=== PATIENT | male | born 1975 | race Caucasian/White ===

== ENCOUNTER 2020-03-12 20:19 | Emergency (ER) | payer OTHER, SELFPAY ==
--- NOTE | 2020-03-12 20:23 | ED.DENTAL ---
HPI - Dental/Oral General Chief complaint: Dental/Oral Stated complaint: tooth pain Time Seen by Provider: 03/12/20 20:24 Source: patient and RN notes reviewed Mode of arrival: ambulatory Limitations: no limitations History of Present Illness HPI Narrative: patient states he has had a broken tooth for about 2 years. Never really bothered him and till the last week or so. Says it hurts worse at night. Hurts when he palpates his left lower jaw. He denies any fever chills. He also states that he has been noncompliant with his high blood pressure medicines. He states that the initial dose he was given seem to make him lightheaded. So he has not been taking it. Complaint: tooth pain Onset (ago): week(s) (1) Duration: intermittent Severity: moderate Relieving factors: nothing Exacerbating factors: chewing Context: history of dental caries Treatment prior to arrival: none Related Data Allergies Allergy/AdvReac Type Severity Reaction Status Date / Time No Known Allergies Allergy Verified 07/13/19 09:10 Review of Systems Review of Systems: All systems reviewed & are unremarkable except as noted in HPI and below Constitutional: Constitutional: Denies chills and Denies fever(s) PMFSH Past Medical History Medical History (Updated 03/12/20 @ 20:46 by Pablo Copeland MD) ROBB (generalized anxiety disorder) Hypertension Obesity YURIY (obstructive sleep apnea) Surgical History Surgical History (Updated 03/12/20 @ 20:27 by Pablo Copeland MD) History of carpal tunnel release Family History Family History Father Heart disease Social History Social History (Updated 03/12/20 @ 20:31 by Pablo Copeland MD) Smoking status: Never smoker Alcohol intake: never Substance use: never Exam Const: General: healthy appearing and no acute distress Nutritional Appearance: well nourished and obese morbidly obese Orientation/consciousness: patient oriented x3 HENMT: Head: normal to inspection Ears: external ears normal General nose exam: Normal external nose present Face and sinus: normal facial exam Mouth: Yes lip normal and Yes moist mucous membranes Teeth and gingiva: abnormal tooth and associated gingiva lower left second molar tender, avulsed and with associated gingival edema; without associated gingival fluctuance Eyes: Conjunctivae: conjunctivae normal Pupils: Equal, round and reactive pupils present EOM: EOMs intact bilaterally Neck: Neck: normal visual inspection and no lymphadenopathy Resp: Effort & Inspection: normal respiratory effort Auscultation: clear to auscultation bilaterally Cardio: Rate: regular rate Rhythm: regular rhythm GI: Auscultation: normal bowel sounds Back/Spine/Pelvis: Cervical Spine: cervical ROM normal Thoracic/Lumbar Spine: thoraco-lumbar ROM normal Neuro: General: patient oriented x3, moves all extremities and no focal motor deficits Speech: normal speech Gait exam (Neuro): Normal gait present Extrem: General: normal to inspection Psych: Appearance: grossly normal and well kempt Mental Status: mental status grossly normal Affect: normal affect Attitude: cooperative Thought content: Yes Normal thought content present Discharge Plan Discharge Clinical Impression: Toothache, Hypertension, Fracture of tooth Patient Disposition: Home, Self-Care Condition: Stable Instructions: Antibiotic Form, Toothache (ED) Additional Instructions: Follow-up with primary care physician in the next 3-5 days to address your high blood pressure. See dentist as soon as possible to extract tooth. Prescriptions: New nabumetone 750 mg tablet 750 mg PO BID Qty: 20 RF: 0 amoxicillin 500 mg tablet 500 mg PO TID Qty: 30 RF: 0 Follow-up/Referrals: Leslie Jones NP [Primary Care Provider] - Stand Alone Forms: Work/School Release IP Time of Disposition: 20:45
[2020-03-12 20:31] VITALS: BP 181/115; PULSE 78; RESP 18; TEMP 36.9; O2SAT 98
[2020-03-12] MEDS: cloNIDine HCL 0.1 MG TABLET 0.2 MG PO (20:43)
[2020-03-12 21:00] VITALS: BP 182/112; PULSE 77; RESP 18; O2SAT 97
[2020-03-12 21:15] VITALS: BP 181/113; PULSE 80; RESP 16; O2SAT 96
[2020-03-12] MEDS: hydrALAZINE HCL 25 MG TABLET PO (21:21)
[2020-03-12 21:40] VITALS: BP 155/104; PULSE 81; RESP 16; O2SAT 97
== END 2020-03-12 21:45 | disposition home or self-care (01) ==
PROVIDERS: Emergency Provider Emergency Medicine; PCP Nurse Practitioner Family
DX: K08.89 Other specified disorders of teeth and supporting structures (principal); I10 Essential (primary) hypertension; S02.5XXA Fracture of tooth (traumatic), initial encounter for closed fracture
CPT/HCPCS: 99283; A9270

== ENCOUNTER 2020-06-04 09:45 | Outpatient (CLI) | payer OTHER, SELFPAY ==
[2020-06-05 12:24] LABS: SARS-CoV-2 RNA PCR Negative
== END 2020-06-04 09:46 | disposition home or self-care (01) ==
LOC: CHSLAB 09:48
PROVIDERS: PCP Nurse Practitioner Family; Visit Provider Nurse Practitioner Family
DX: R50.9 Fever, unspecified (principal); Z20.828 Contact with and (suspected) exposure to other viral communicable diseases
CPT/HCPCS: 87635; C9803; U0003

== ENCOUNTER 2020-12-18 09:12 | Outpatient (CLI) | payer OTHER, SELFPAY ==
--- NOTE | ~2020-12-18 | XR_ITS ---
EXAMINATION: XR wrist LT 2V INDICATION: Left wrist pain TECHNIQUE: Two views of left wrist are obtained. COMPARISON: None available FINDINGS: Bone alignment is normal. There is no fracture. The soft tissues are unremarkable. IMPRESSION: 1. Unremarkable two view left wrist radiographs. Reviewed, dictated and finalized at location B.
== END 2020-12-18 09:13 | disposition home or self-care (01) ==
LOC: CHSIMG 09:16
PROVIDERS: PCP Nurse Practitioner Family; Visit Provider Nurse Practitioner Family
DX: M25.532 Pain in left wrist (principal)
CPT/HCPCS: 73100

== ENCOUNTER 2021-06-09 10:51 | Outpatient (CLI) | payer OTHER, SELFPAY ==
[2021-06-09 11:41] LABS: SARS-CoV-2 RNA PCR Negative (Negative)
== END 2021-06-09 10:52 | disposition home or self-care (01) ==
LOC: CHSLAB 10:55
PROVIDERS: PCP Nurse Practitioner Family; Visit Provider Nurse Practitioner Family
DX: Z20.822 Contact with and (suspected) exposure to COVID-19 (principal)
CPT/HCPCS: C9803; U0003; U0005

== ENCOUNTER 2021-09-23 00:30 | Emergency (ER) | payer OTHER, SELFPAY ==
[2021-09-23 08:32] LABS: Influenza Control Valid (Valid)
[2021-09-23 08:33] LABS: SARS-CoV-2 Ag Negative (Negative)
== END 2021-09-23 01:49 | disposition home or self-care (01) ==
PROVIDERS: Emergency Provider Internal Medicine Critical Care Medicine; PCP Nurse Practitioner Family
DX: J02.0 Streptococcal pharyngitis (principal); J30.9 Allergic rhinitis, unspecified; H66.93 Otitis media, unspecified, bilateral; Z20.822 Contact with and (suspected) exposure to COVID-19
CPT/HCPCS: 87426; 87804; 87880; 99283; C9803

== ENCOUNTER 2021-11-13 08:58 | Outpatient (CLI) | payer OTHER, SELFPAY ==
[2021-11-13 10:16] LABS: SARS-CoV-2 RNA PCR Positive (Negative)
== END 2021-11-13 08:59 | disposition home or self-care (01) ==
LOC: CHSLAB 09:00
PROVIDERS: PCP Nurse Practitioner Family; Visit Provider Family Medicine
DX: U07.1 COVID-19 (principal)
CPT/HCPCS: C9803; U0003; U0005

== ENCOUNTER 2021-12-10 16:14 | Outpatient (RCR) | payer OTHER, SELFPAY ==
--- NOTE | 2021-12-11 08:23 | PTOPEVAL ---
Thank you for referring Gene Fournier to [facility].? The patient is scheduled to be seen for therapy? ____x/week for ___ weeks. Please review, sign, date and return this plan of care SITA. I agree with and certify that the following plan of care is medically necessary. 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 Respiratory History Hx Sleep Apnea Yes Gastrointestinal History Hx Gastrointestinal Disorders No Significant History Genitourinary History Hx Genitourinary Disorders No Significant History Musculoskeletal History Hx Back Pain Yes Hematological History Hx Hematological Disorders No Significant History Endocrine History Hx Endocrine Disorders No Significant History HEENT History Hx HEENT Disorders No Significant History Integumentary History Hx Skin Disorders No Significant History Reproductive History Hx Reproductive Disorders No Significant History Psychosocial History Hx Psychiatric Disorders No Significant History Pain History History of Any Previous or Ongoing No Significant History Instance of Pain Anesthesia History Hx Anesthesia Reactions No Significant History Other History Hx Other Surgeries Yes Evaluation Information Problem Diagnosis L Lateral Epicondylitis Onset 12/02/21 Additional Evaluation Detail Quick Dash = 66% Functionally Declined Subjective Information Pt reports that the back of Query Text:As Reported By Patient/ his L forearm will hurt when Family he straightens his L elbow. Picking up objects also increases his pain. He does recall an incident that caused his pain to increase, but reports that the pain has increased over the course of a month. Pt is also left handed . Prior Level of Function Comments Additional Prior Level of Function Pt works with a Comments
--- NOTE | 2022-01-22 17:08 | PTOPEVAL ---
Thank you for referring Gene Fournier to [facility].? The patient is scheduled to be seen for therapy? ____x/week for ___ weeks. Please review, sign, date and return this plan of care SITA. I agree with and certify that the following plan of care is medically necessary. 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[employer] Respiratory History Hx Sleep Apnea Yes Gastrointestinal History Hx Gastrointestinal Disorders No Significant History Genitourinary History Hx Genitourinary Disorders No Significant History Musculoskeletal History Hx Back Pain Yes Hematological History Hx Hematological Disorders No Significant History Endocrine History Hx Endocrine Disorders No Significant History HEENT History Hx HEENT Disorders No Significant History Integumentary History Hx Skin Disorders No Significant History Reproductive History Hx Reproductive Disorders No Significant History Psychosocial History Hx Psychiatric Disorders No Significant History Pain History History of Any Previous or Ongoing No Significant History Instance of Pain Anesthesia History Hx Anesthesia Reactions No Significant History Other History Hx Other Surgeries Yes Evaluation Information Problem Diagnosis L Lateral Epicondylitis Onset 12/02/21 Additional Evaluation Detail quick dash = 9% functionally declined Subjective Information patient reports he feels good Query Text:As Reported By Patient/ this date. he reports his Family arm finally feels like it is getting better and the pain and tightness has released. he reports he has not had any severe pain in the last week. Pain Assessment Timing of Pain Assessment Timing of Pain Assessment Assessment Pain Scale Pain Scale Used Numeric (1 - 10) Self Report Pain Assessment Left Elbow(s) Reported Pain Level 2 Greatest Pain Intensity 2 Pain Score Pain Score 2: Se
== END 2022-01-22 17:29 | disposition home or self-care (01) ==
LOC: CHSPT 16:14
PROVIDERS: PCP Nurse Practitioner Family; Visit Provider Nurse Practitioner Family
DX: M79.632 Pain in left forearm (principal); M25.522 Pain in left elbow
CPT/HCPCS: 97014; 97035; 97110; 97140; 97161; G0283

== ENCOUNTER 2023-02-17 08:51 | Outpatient (CLI) | payer OTHER, SELFPAY ==
--- NOTE | ~2023-02-17 | US_ITS ---
Renal-Bladder ultrasound Clinical History: Disorder of kidney and ureter, unspecified. Right flank pain. Technique: Real-time sonographic imaging of the kidneys and urinary bladder was performed. Findings: The right kidney measures 13.0 cm in length and the left kidney measures 12.4 cm. There is no hydronephrosis or renal calculus identified. Renal cortical echogenicity is within normal limits. Possible exophytic cyst at the left lower pole measuring 2.7 m in diameter. The urinary bladder is moderately distended at the time of this exam. No intraluminal echoes are iden tified. No abnormal wall thickening is seen. Impression: Possible 2.8 cm exophytic cyst versus other mass at the left lower renal pole. Evaluation is suboptim al due to patient body habitus. Consider cross-sectional imaging for further evaluation. Reviewed, dictated and finalized at [facility]. Impression: Possible 2.8 cm exophytic cyst versus other mass at the left lower renal pole. Evaluation is suboptimal due to patient body habitus. Consider cross-sectional imaging for further evaluation.
== END 2023-02-17 08:52 | disposition home or self-care (01) ==
LOC: CHSIMG 08:53
PROVIDERS: PCP Nurse Practitioner Family; Visit Provider Nurse Practitioner Family
DX: N28.9 Disorder of kidney and ureter, unspecified (principal)
CPT/HCPCS: 76775

== ENCOUNTER 2023-02-27 08:46 | Outpatient (CLI) | payer OTHER, SELFPAY | END 2023-02-27 08:47 | disposition home or self-care (01) | LOC: CHSIMG 08:47 | PROVIDERS: PCP Nurse Practitioner Family; Visit Provider Nurse Practitioner Family | DX: N28.9 Disorder of kidney and ureter, unspecified (principal) | CPT/HCPCS: 99199 ==

== ENCOUNTER 2023-03-31 13:14 | Outpatient (CLI) | payer OTHER, SELFPAY ==
[2023-03-31 13:39] LABS: Appearance Urine Clear (Clear); Bilirubin Urine Negative (Negative); Color Urine Light Yellow (Yellow); Glucose Urine UA Negative (Negative); Ketones Urine Negative (Negative); Leukocyte Esterase Ur Negative LEU/UL (Negative); Nitrate Urine Negative (Negative); Protein Urine Negative (Negative); Specific Grav Ur 1.025 (1.010-1.020); Urobilinogen Urine 0.2 mg/dL (0.2-1.0)
[2023-03-31 13:45] LABS: Add Urine Microscopic? YES; Bacteria Urine None seen /hpf; Blood Urine Trace-lysed (Negative); RBC Urine None seen /hpf (0-2); WBC Urine None seen /hpf (0-3)
== END 2023-03-31 13:15 | disposition home or self-care (01) ==
LOC: CHSLAB 13:16
PROVIDERS: PCP Nurse Practitioner Family; Visit Provider Nurse Practitioner Family
DX: R39.9 Unspecified symptoms and signs involving the genitourinary system (principal)
CPT/HCPCS: 81001

== ENCOUNTER 2023-04-21 14:40 | Outpatient (CLI) | payer OTHER, SELFPAY ==
--- NOTE | ~2023-04-21 | XR_ITS ---
EXAM: XR thoracic spine 3V DATE: 04/21/2023 15:07 HISTORY: M54.9 - Dorsalgia, unspecified . COMPARISON: None available. FINDINGS: Vertebral body alignment intact. Incidental grade 1 anterolisthesis at C7-T1. Exaggerated thoracic kyphosis. Mild anterior wedge deformity at T8 and T9. Multilevel moderate disc space narrowi ng and marginal osteophytosis. No traumatic malalignment. Visualized lung parenchyma is clear. IMPRESSION: Mild anterior wedge compression deformities at T8 and T9 of uncertain age. Correlate with pain/tender ness. Multilevel moderate thoracic degenerative disc disease. Grade 1 anterolisthesis at C7-T1. Reviewed, dictated and finalized at location K. IMPRESSION: Mild anterior wedge compression deformities at T8 and T9 of uncertain age. Cristal elate with pain/tenderness. Multilevel moderate thoracic degenerative disc disease. Grade 1 anterolisthesis at C7-T1.
== END 2023-04-21 14:41 | disposition home or self-care (01) ==
PROVIDERS: PCP Nurse Practitioner Family; Visit Provider Nurse Practitioner Family
DX: M54.9 Dorsalgia, unspecified (principal); M48.54XA Collapsed vertebra, not elsewhere classified, thoracic region, initial encounter for fracture; M51.34 Other intervertebral disc degeneration, thoracic region; M43.14 Spondylolisthesis, thoracic region
CPT/HCPCS: 72072

== ENCOUNTER 2023-07-19 08:13 | Outpatient (CLI) | payer OTHER, SELFPAY ==
--- NOTE | ~2023-07-19 | NM_ITS ---
EXAMINATION: NM hepatobiliary wo pharm DATE: 07/19/2023 11:39 INDICATION: Right upper quadrant abdominal pain. COMPARISON: Ultrasound 07/19/2023 TECHNIQUE: 4.9 mCi Tc-99m mebrofenin (Choletec) was administered intravenously. Scintigraphic images of the abdomen were obtained for one hour. Then, the patient drank 8 oz Ensure, and imaging was cont inued for 60 minutes. FINDINGS: There is normal clearance of radiotracer from the blood pool. There is homogeneous tracer u ptake by the liver. Activity progresses to the bowel and gallbladder. Gallbladder ejection fraction (GBEF) was 27%. Note that with this technique, normal GBEF >= 33%. IMPRESSION: 1. Low gallbladder ejection fraction, consistent with gallbladder dysfunction and/or chronic cholecy stitis. Reviewed, dictated and finalized at location A. CASE MAKER IMPRESSION: 1. Low gallbladder ejection fraction, consistent with gallbladder dysfunction and/or chronic cholecystitis.
--- NOTE | ~2023-07-19 | US_ITS ---
Limited Abdominal Sonogram: Real-time sonographic imaging of the right upper quadrant was performed. Clinical History: Right upper quadrant pain Findings: The liver appears echogenic, with no evidence of mass lesion or bile duct dilatation. Main portal vein demonstrates normal direction of flow. The gallbladder is well distended, and appears no rmal with no evidence of gallstone or wall thickening. The common bile duct measures 5 mm. The visua lized pancreas, aorta, and IVC are unremarkable. Impression: No significant abnormality seen. Reviewed, dictated and finalized at location M. ED FRUIT PACKER Impression: No significant abnormality seen.
== END 2023-07-19 08:14 | disposition home or self-care (01) ==
PROVIDERS: PCP Nurse Practitioner Family; Visit Provider Nurse Practitioner
DX: R93.2 Abnormal findings on diagnostic imaging of liver and biliary tract (principal)
CPT/HCPCS: 76705; 78226; A9537

== ENCOUNTER 2023-08-23 11:31 | Emergency (ER) | payer OTHER, SELFPAY ==
[2023-08-23 11:51] VITALS: BP 152/82; PULSE 97; RESP 20; TEMP 37.5; O2SAT 100
--- NOTE | 2023-08-23 12:19 | ED.URI ---
HPI - URI/Sore Throat General Chief Complaint: Upper Respiratory Infection Stated Complaint: flu symptoms Time Seen by Provider: 08/23/23 12:09 Source: patient and RN notes reviewed Mode of arrival: ambulatory Limitations: no limitations History of Present Illness HPI Narrative: Patient presents today complaining of bilateral ear pain, cough, congestion, rhinorrhea, body aches since yesterday. Unsure if he has had a fever. Currently rates his pain 7/10 and has been taking DayQuil, NyQuil, and ibuprofen without much relief. Reports has recently been ill with pneumonia and influenza B. Related Data Home Medications Medication Instructions Recorded Confirmed losartan 25 mg tablet 25 mg PO DAILY 07/27/23 08/23/23 Allergies Allergy/AdvReac Type Severity Reaction Status Date / Time cortisone Allergy Other Uncoded 07/27/23 09:12 Review of Systems Review of Systems: CONSTITUTIONAL: Denies fever, chills, or sweats. Body aches EYES: Denies visual changes, redness, or discharge. ENT: Denies sore throat. + congestion, rhinorrhea, bilateral ear pain CARDIOVASCULAR: Denies chest pain, palpitations, or edema. RESPIRATORY: Denies dyspnea.+ cough GASTROINTESTINAL: Denies abdominal pain, nausea, vomiting, or diarrhea. GENITOURINARY: Denies dysuria or hematuria. SKIN: Denies rash, itching, or wounds. MUSCULOSKELETAL: Denies back pain, joint pain, or myalgia. NEUROLOGIC: Denies headache, numbness, tingling, or weakness. PSYCH: Denies depression or anxiety. [facility] Past Medical History Medical History Biliary dyskinesia Colicky RUQ abdominal pain ROBB (generalized anxiety disorder) Hypertension Obesity YURIY (obstructive sleep apnea) Screening for colon cancer Surgical History Surgical History History of carpal tunnel release History of hand surgery Family History Family History Father Heart disease Social History Social History Smoking status: Never smoker Alcohol intake: never Substance use: never Do You Feel Safe in your Home?: Yes Lack of Transportation: No Lack of Food: Never True Current Housing: I Have Housing Concerned About Future Housing: No Difficulty Paying Gas/Electric Bills: No Difficulty Paying for Meds: No Currently Unemployed: No Education: High School Diploma/GED Difficulty w/ Childcare or Family Care: No Gender identity (if verbalized by the patient): Male Comments At time of signature, I have reviewed and agree with nursing past medical, surgical, social and family history unless otherwise noted. Please see nursing chart for further information. There is no relevant family history pertinent to the presenting complaint Exam Narrative: GENERAL: Ill-appearing, well-nourished, and in no acute distress. HEAD: Normocephalic, atraumatic. EYES: EOMI. No redness or drainage. Conjunctivae normal. ENT: Mucous membranes pink and moist. Nares congested with rhinorrhea. TMs normal bilaterally. Throat normal. Uvula midline. NECK: Normal AROM. Supple. No lymphadenopathy. CHEST: No respiratory distress. Clear to auscultation. HEART: Regular rate and rhythm. No murmur appreciated. EXTREMITIES: Normal range of motion. No edema. SKIN: Warm, dry, no rash. Capillary refill normal. Normal skin turgor. NEURO: No focal deficits. Alert and oriented x3. Gait steady. PSYCH: Normal affect. No signs of depression or anxiety. Course Course Level of Care: Express Care Visit Vital Signs Vital signs: Vital Signs Temperature 99.5 F 08/23/23 11:51 Pulse Rate 97 08/23/23 11:51 Respiratory Rate 20 08/23/23 11:51 Blood Pressure 152/82 H 08/23/23 11:51 Pulse Oximetry 100 08/23/23 11:51 Oxygen Delivery Room Air
== END 2023-08-23 12:30 | disposition home or self-care (01) ==
PROVIDERS: Emergency Provider Nurse Practitioner
DX: J10.1 Influenza due to other identified influenza virus with other respiratory manifestations (principal); Z20.822 Contact with and (suspected) exposure to COVID-19; I10 Essential (primary) hypertension; E66.9 Obesity, unspecified; Z68.43 Body mass index [BMI] 50.0-59.9, adult
CPT/HCPCS: 87081; 87426; 87804; 87880; 99213; G0463

== ENCOUNTER 2023-09-02 13:26 | Outpatient (CLI) | payer OTHER, SELFPAY ==
--- NOTE | 2023-09-02 13:48 | ECG_ITS ---
Measurements Intervals [place] Rate: 74 P: 43 RI: 155 QRS: 40 QRSD: 93 T: 69 QT: 387 QTc: 431 Interpretive Statements SINUS RHYTHM BORDERLINE ST-T WAVE ABNORMALITY- DIFFUSE LEADS BORDERLINE ECG NO PREVIOUS ECG AVAILABLE FOR COMPARISON Electronically Signed On 09-02-2023 14:27:27 CDT by Vinny Stiles D.O.
[2023-09-02 14:19] LABS: Alanine Aminotransferase 31 U/L (6-50); Albumin Level 4.1 g/dL (3.5-5.1); Alkaline Phosphatase 96 U/L (38-126); Amylase 68 U/L (30-110); Aspartate Amino Transferase 29 U/L (17-59); Bilirubin,Total 0.4 mg/dL (0.2-1.3); Lipase 118 U/L (23-300)
== END 2023-09-02 13:27 | disposition home or self-care (01) ==
PROVIDERS: PCP Nurse Practitioner Family; Visit Provider Surgery
DX: Z01.818 Encounter for other preprocedural examination (principal); K81.9 Cholecystitis, unspecified
CPT/HCPCS: 36415; 80076; 82150; 83690; 86850; 86900; 86901; 93005

== ENCOUNTER 2023-09-07 00:15 | Day surgery (SDC) | payer OTHER, SELFPAY ==
[2023-08-30 14:35] VITALS: BMI 54.8
--- NOTE | 2023-08-30 14:36 | PC.NURSE ---
Report to the Outpatient Waiting Room, entrance under the green pavilion located off [facility], at time _1130_ on date _[id number]_. Planned Procedure Time: _130pm_. Time changes happen often and if your time is changed the preop area will call you the afternoon before. - You and your visitor will be asked to self-screen and do not enter if you have any COVID symptoms. - A mask is optional within the hospital at this time. Patients may have clear liquids (water, carbonated beverages, clear teas, apple juice) until 3 hours prior to surgery with a maximum of 20 ounces. - No food from midnight until time of surgery Take the following medications with a SIP of water the morning of surgery: ___None DO NOT STOP ANY OF YOUR OTHER PRESCRIPTION MEDICATIONS PRIOR TO SURGERY ?EXCEPT THE FOLLOWING Medications to discontinue per physician None Date to take last dose Please no make-up, nail greek, hairspray, perfume, deodorant, or body powder the day of surgery. No jewelry (including any body piercings) or valuables the day of surgery, leave them at home. Please take a shower or bath the night before, or the morning of, surgery with an antibacterial soap. Wear comfortable, loose fitting clothing. - Jewelry must be removed prior to entering the operating room. Rings and piercings that are not removed may be cut off. - The hospital will not accept responsibility for valuables. - Please leave all valuables, including medications, at home the day of surgery. If you are going home after surgery, a licensed pharmacy delivery driver must drive you home. - NO public transportation without another adult if you receive anesthesia. - We recommend that an adult stay with you for 24 hours following discharge. - We also recommend that you do not drive, make important decision, drink alcoholic beverages, or take any drugs that were not prescribed by your health care provider for at least 24 hours after your discharge time. Follow any additional instructions given to you from your surgeon. If you or anyone in your household have experienced Covid symptoms in the past week, please notify your surgeon or the nurse liaison at the phone number below for possible testing. Telephone instructions given to _Carroll___and asked if any additional questions and then verbalized understanding. Patient advised to call surgeon office or pre surgery nurse liaison [phone] if any additional questions.
[2023-09-07] VITALS (8 sets, daily range): BP systolic 150–178; BP diastolic 81–98; PULSE 67–94; RESP 16–20; TEMP 36.8–37.1; O2SAT 96–100
[2023-09-07] MEDS: ACETAMINOPHEN 500 MG TABLET 1000 MG PO (11:40)
[2023-09-07] MEDS: INDOCYANINE GREEN 25 MG VIAL WITH DILUENT 3.75 MG IV PUSH (12:09)
[2023-09-07] MEDS: KETOROLAC 15 MG/ML VIAL (*BKC) IV PUSH (12:11)
--- NOTE | 2023-09-07 13:05 | PM.IMHP ---
H&P: HPI History of Present Illness Date/Time: 09/07/23 13:05 Chief Complaint: RUQ pain Narrative: Gene is a 48 y/o male who presents with RUQ abdominal pain at the request of Karla Lacy APRN. He first had an episode of RUQ abdominal pain in January. He states the pain radiated to his back. He also had associated vomiting. He was seen in an ER at [facility] and was told he had a cyst on his kidney. He followed up with his PCP and proceeded with a HIDA scan on 07/19/23 which showed a GBEF of 27%. He also had an abdominal U/S which showed no abnormality. Since the initial abdominal pain, he has noticed intermittent right sided pain and discomfort after drinking soda. He also had discomfort recently after eating white chocolate. He admits to eating a lot of fast food due to his job. He has experienced some acid reflux and was started on Protonix. He tried it for about 1.5 weeks with no relief and has stopped taking it. Review of Systems Review of Systems: The remainder of the review of systems to include constitutional, HEENT, cardiovascular, respiratory, GI, , integumentary, musculoskeletal, endocrine, immunologic, hematologic, psychiatric, and neurologic are all negative except for which is mentioned above in the HPI. [facility] Past Medical History Medical History Biliary dyskinesia Colicky RUQ abdominal pain ROBB (generalized anxiety disorder) Hypertension Obesity YURIY (obstructive sleep apnea) Screening for colon cancer Surgical History Surgical History History of carpal tunnel release History of hand surgery Family History Family History Father Heart disease Social History Social History Smoking status: Never smoker Alcohol intake: never Substance use: never Do You Feel Safe in your Home?: Yes Lack of Transportation: No Lack of Food: Never True Current Housing: I Have Housing Concerned About Future Housing: No Difficulty Paying Gas/Electric Bills: No Difficulty Paying for Meds: No Currently Unemployed: No Education: High School Diploma/GED Difficulty w/ Childcare or Family Care: No Living arrangements: with family Gender identity (if verbalized by the patient): Male Spiritual care concerns: No Meds Home Medications and Allergies Home Medications Medication Instructions Recorded Confirmed Type omeprazole 20 mg capsule,delayed 20 mg PO BID #45 caps 07/27/23 08/30/23 Rx release Allergies Allergy/AdvReac Type Severity Reaction Status Date / Time cortisone Allergy Severe Other Uncoded 09/07/23 11:33 Vital Signs Vital Signs - 24 hr 09/07/23 12:42 Temperature 37.1 C Pulse Rate 72 Respiratory Rate 20 Blood Pressure 178/93 H Pulse Oximetry 98 Oxygen Delivery Room Air Exam Const: General: comfortable and no acute distress HENMT: Ears: TM's normal bilaterally Face/Nose/Sinus: Normal nares present Mouth: Yes moist mucous membranes Eyes: General: appearance normal, both eyes and all related structures Sclera: sclerae normal Pupils: Equal, round and reactive pupils present EOM: EOMs intact bilaterally Neck: Neck: supple and no JVD Resp: Effort & Inspection: normal respiratory effort Auscultation: clear to auscultation bilaterally Cardio: Rate: regular rate Rhythm: regular rhythm GI: Other: Inspection: normal to inspection and central obesity Palpation/Percussion: Yes no guarding and No Rebound tenderness present Other: Minimal RUQ & right lateral tenderness. Neuro: General: gait normal Speech: normal speech Motor exam (neuro): 5/5 motor strength present throughout Sensory Exam: normal sensation Extrem: General: normal to inspection Psych: Mental Status: mental status grossly normal Affect: normal affect Assessment
--- NOTE | 2023-09-07 13:10 | P.PNAN_ITS ---
Anes - Initial Pre Proc Eval Procedure: Operation Date: 09/07/23 13:30 Proposed Procedures p Robotic Assisted Laparoscopic Cholecystectomy, Possible Open - Carroll Diaz MD Date/Time: 09/07/23 13:10 Surgeon: Carroll Diaz MD Pre Op Diagnosis: RUQ pain, billiary dyskinesia Patient Data Age: 48 Gender: M Height: 1.73 m Weight: 161 kg Last Vital Signs Temp 37.1 C 09/07/23 12:42 Pulse 72 09/07/23 12:42 Resp 20 09/07/23 12:42 BP 178/93 H 09/07/23 12:42 Pulse Ox 98 09/07/23 12:42 O2 Del Method Room Air 09/07/23 12:42 Allergies Allergy/AdvReac Type Severity Reaction Status Date / Time cortisone Allergy Severe Other Uncoded 09/07/23 11:33 Home Medications Medication Instructions Recorded Confirmed Type omeprazole 20 mg capsule,delayed 20 mg PO BID #45 caps 07/27/23 08/30/23 Rx release Patient hx anesthesia problems: none Family hx anesthesia problems: none Results Review: All pre-operative results and documents have been reviewed as part of the pre- operative evaluation. [facility] Past Medical History Medical History Biliary dyskinesia Colicky RUQ abdominal pain ROBB (generalized anxiety disorder) Hypertension Obesity YURIY (obstructive sleep apnea) Screening for colon cancer Surgical History Surgical History History of carpal tunnel release History of hand surgery Family History Family History Father Heart disease Social History Social History Smoking status: Never smoker Alcohol intake: never Substance use: never Do You Feel Safe in your Home?: Yes Lack of Transportation: No Lack of Food: Never True Current Housing: I Have Housing Concerned About Future Housing: No Difficulty Paying Gas/Electric Bills: No Difficulty Paying for Meds: No Currently Unemployed: No Education: High School Diploma/GED Difficulty w/ Childcare or Family Care: No Living arrangements: with family Gender identity (if verbalized by the patient): Male Spiritual care concerns: No Anes - Eval Final PreProcedure Day of Procedure 09/07/23 13:10 Patient weight: super morbidly obese Heart: regular rate and rhythm Lungs: clear to auscultation Airway: Mallampati scale class III Neurological: alert and oriented Last oral intake: >/= 8 hours ASA classification: IV Emergent: no Anesthetic plan: proceed Anesthesia type and monitoring: general ETT and standard monitoring Results Review: All pre-operative results and documents have been reviewed as part of the pre- operative evaluation. Informed Consent: The patient's anesthetic plan and its attendant risks and benefits were discussed with the patient/family/POA. Questions were solicited and answers provided to the satisfaction of the patient/family/POA.
--- NOTE | 2023-09-07 13:10 | WPDHPUPDATE1 ---
History and Physical Update Update Date/Time: 09/07/23 13:10 History and Physical has been reviewed, including an updated exam of the patient. There are NO changes in the patient's condition. Risks, benefits, and alternatives have been discussed and questions answered. Patient agrees to proceed with procedure.
[2023-09-07] MEDS: ceFAZolin 3 GM/D5W 100 ML 100 ML IVPB (13:51)
[2023-09-07] MEDS: LIDO 1%/EPINEPHRINE 1:100,000 20 ML VIAL 30 ML INFILTRATE (14:37)
[2023-09-07] MEDS: BUPivacaine HCL 0.5% PF 30 ML VIAL INFILTRATE (14:37)
[2023-09-07] MEDS: LACTATED RINGERS 1,000 ML 30 ML IV CONT (16:36)
--- NOTE | 2023-09-07 16:44 | W.PM.PROC2 ---
Procedure Note - Detailed Date of Procedure 09/07/23 Pre-op Diagnosis RUQ pain, billiary dyskinesia Post-op Diagnosis Same Procedure Performed Robotic assisted laparoscopic cholecystectomy Surgeon Carroll Diaz MD Anesthesia General Indications Patient presents with frequent right upper quadrant epigastric abdominal pain associated with eating. Gallstones were not seen on ultrasound. He has biliary colic due to gallbladder dysfunction has ejection fraction was abnormal and he was having pain with the HIDA scan. He presents now for an elective robotic assisted laparoscopic cholecystectomy. Findings Gallbladder appeared to be relatively normal in size and thickness. No acute inflammation of the gallbladder. Description of Procedure After informed consent was obtained patient brought to the operating room was placed supine position and general endotracheal anesthesia was administered. The abdomen is then prepped and draped usual sterile fashion. Time-out was then performed correctly identifying the patient as well as procedure to be performed. Perioperative IV antibiotics were given. A 5mm Optiview port was then used into the abdomen the left upper quadrant. Abdomen is insufflated to adequate pneumoperitoneum of 15mmHg of CO2. I then placed 4 more additional 8mm robotic trocar ports across the abdomen for robotic access. The Grid20/20 robot was then brought to the patient's bedside in the robotic arms were attached the robotic ports. Robotic instruments were then advanced into the abdomen as was the camera under direct visualization. Gallbladder was held with the robotic grasper at the dome and elevated over the right half liver towards the right shoulder. Second grasper used all the gallbladder infundibulum. I then stripped the visceral peritoneum off of the infundibular gallbladder to identify the cystic duct. Cystic duct was then dissected out circumferentially. Cystic artery was identified and was dissected out circumferentially as well. Posterior wall the gallbladder at the infundibulum dissected free liver until good critical view was obtained. At this point 2 clips were placed proximally the cystic duct and 1 distally high on infundibular gallbladder. Cystic duct was then divided with robotic dexter. A similar fashion cystic artery clipped and divided as well. Gallbladder was then resected off the liver utilizing robotic cautery. There was spillage of some bile during the dissection. Once the gallbladder is free of the liver it was placed into an Endo-Catch bag and brought out through the left upper quadrant trocar port site which was dilated up to a 10mm trocar port. Gallbladder is passed off table sent to pathology for examination. Upon examination the liver bed there was bleeding from the medial portion liver bed. Multiple attempts to achieve hemostasis electrocautery and placement of clips were unsuccessful. Placement of Tisseel and Surgicel and pressure for 10minutes was not successful in obtaining hemostasis. At this point I then proceeded to place suture ligation with a 3-0 absorbable V lock suture. This obtained hemostasis in this area the liver bed. I then aspirated the right upper quadrant the abdomen the gallbladder fossa copious of copious sterile saline solution. The blood clot air was then aspirated. Hemostasis was good. I then removed all the trocar ports under visualization after the HESIODO robot was undocked from the patient's bedside and robotic instruments were removed. And scrub back into the procedure and proceeded to close the 10mm left upper quadrant trocar port site was utilizing 0 Vicryl suture in the fascia. The skin edges not the port sites were then approximated utilizing a running subcuticular 4 Monocryl suture. Incisions were then cleaned and then skin glue sterile dressings were applied. The patient tolerated the procedure well no complications. All sponges, needles, and instrument counts were correct at t
[2023-09-07] MEDS: fentaNYL CITRATE INJ (*CRX) 100 MCG/2 ML VIAL 25 MCG IV PUSH ×4 (17:03→17:13)
[2023-09-07] MEDS: oxyCODONE HCL (*CRX) 5 MG TAB IR PO (17:41)
== END 2023-09-07 18:45 | disposition home or self-care (01) ==
PROVIDERS: PCP Nurse Practitioner Family; Visit Provider Surgery
PROC: 0FT44ZZ Resection of Gallbladder, Percutaneous Endoscopic Approach (ICD-10-PCS; CPT 47562; principal; 2023-09-07 13:30)
DX: K81.1 Chronic cholecystitis (principal); G47.33 Obstructive sleep apnea (adult) (pediatric); E66.01 Morbid (severe) obesity due to excess calories; Z68.43 Body mass index [BMI] 50.0-59.9, adult
CPT/HCPCS: 47562; S2900; 36415; 80076; 82150; 83690; 86850; 86900; 86901; 88304; 93005; A9270; J0330; J0690; J1885; J2250; J2405; J2704; J3010; J7120

== ENCOUNTER 2024-06-09 00:48 | Emergency (ER) | payer OTHER, SELFPAY ==
[2024-06-09 00:48] VITALS: BP 191/111; PULSE 67; RESP 16; TEMP 36.6; O2SAT 100
--- NOTE | 2024-06-09 00:56 | ED.EAR ---
HPI - Ear Problem General Chief complaint: Ear Stated complaint: EAR PROBLEM Time Seen by Provider: 06/09/24 00:54 Source: patient Mode of arrival: ambulatory Limitations: no limitations History of Present Illness HPI Narrative: patient with a history of sinus congestion and uses a CPAP pain has nasal congestion and use some saline rinse that caused some bilateral ear ringing and increased congestion. Currently there is no fever chills no nasal drainage no shortness of breath no nausea vomiting. MD Complaint: ear pain Location: bilateral Duration: constant Severity: mild Related Data Allergies Allergy/AdvReac Type Severity Reaction Status Date / Time cortisone Allergy Severe Other Uncoded 04/18/24 15:26 Review of Systems Review of Systems: All systems reviewed & are unremarkable except as noted in HPI and below PMFSH Past Medical History Medical History Biliary dyskinesia Screening for colon cancer Colicky RUQ abdominal pain Hypertension Obesity ROBB (generalized anxiety disorder) YURIY (obstructive sleep apnea) Surgical History Surgical History History of laparoscopic cholecystectomy Robotic assisted laparoscopic cholecystectomy 09/07/23 History of hand surgery History of carpal tunnel release Family History Family History Father Heart disease Social History Social History Smoking status: Never smoker Alcohol intake: never Substance use: never Do You Feel Safe in your Home?: Yes Lack of Transportation: No Lack of Food: Never True Current Housing: I Have Housing Concerned About Future Housing: No Difficulty Paying Gas/Electric Bills: No Difficulty Paying for Meds: No Currently Unemployed: No Education: High School Diploma/GED Difficulty w/ Childcare or Family Care: No Living arrangements: with family Gender identity (if verbalized by the patient): Male Spiritual care concerns: No Exam Const: General: healthy appearing Nutritional Appearance: well nourished Orientation/consciousness: patient oriented x3 Limitations: no limitations HENMT: Head: normal to inspection Eyes: Conjunctivae: conjunctivae normal Neck: Neck: normal visual inspection and no lymphadenopathy Chest: Chest palpation & inspection: normal inspection of the chest Resp: Effort & Inspection: normal respiratory effort Auscultation: clear to auscultation bilaterally Cardio: Rate: regular rate Rhythm: regular rhythm GI: GI Palp: Yes Soft to palpation Course Course Emergency Course: Patient with sinus congestion and ringing of ears will give a dose of Claritin and prednisone Critical Care Time Critical Care Time Critical Care Time: No Discharge Plan Discharge Clinical Impression: Congestion of nasal sinus Patient Disposition: Home, Self-Care Condition: Stable Instructions: Antibiotic Form, Rhinosinusitis (ED) Patient Language: Turkish Prescriptions: New prednisone 20 mg tablet 20 mg PO DAILY 5 Days Qty: 5 0RF No Action omeprazole 20 mg capsule,delayed release(DR/EC) 20 mg PO BID Qty: 45 1RF azithromycin 250 mg tablet See Rx Instructions PO DAILY Qty: 6 0RF Rx Instructions: take 500 mg today by mouth - two tablets (day 1), then 250 mg (one tablet) by mouth for 4 days (days 2-5) orally daily; losartan 50 mg tablet See Rx Instructions .ROUTE .COMPLEX Qty: 90 2RF Dose Instruction: TAKE 1 TABLET BY MOUTH EVERY DAY Rx Instructions: TAKE 1 TABLET BY MOUTH EVERY DAY Follow-up/Referrals: Leslie Jones NP [Primary Care Provider] -
[2024-06-09] MEDS: LORATADINE 10 MG TABLET PO (01:14)
[2024-06-09] MEDS: predniSONE 20 MG TABLET PO (01:14)
[2024-06-09 01:27] VITALS: BP 189/106; PULSE 69; RESP 18; O2SAT 96
== END 2024-06-09 01:27 | disposition home or self-care (01) ==
LOC: CHSED 01:17
PROVIDERS: Emergency Provider Emergency Medicine; PCP Nurse Practitioner Family
DX: R09.81 Nasal congestion (principal); I10 Essential (primary) hypertension
CPT/HCPCS: 99283; A9270; J7512

== ENCOUNTER 2024-06-15 08:31 | Outpatient (CLI) | payer OTHER, SELFPAY ==
--- NOTE | ~2024-06-15 | US_ITS ---
US renal BI Ordering provider: Yelitza Barnard MD History: . N28.1 - Cyst of kidney, acquired . Comparison: None. Technique: Ultrasound bilateral kidneys. Findings: RIGHT KIDNEY: Measures 14.3x 5.4x 6.4 cm in length which is normal in size. No renal cysts. No renal mass. Cortical calcifications are noted.. Otherwise, normal echotexture and contour. No hydronephrosi s. Normal renal cortical thickness. LEFT KIDNEY: Measures 13.3x 5.8x 7 cm in length which is normal in size. Simple cyst is seen measurin g 1.9 x 2.1 x 1.3 cm.. No renal mass or visualized echogenic stones. Otherwise, normal echotexture an d contour. No hydronephrosis. Normal renal cortical thickness. BLADDER: Unremarkable. IMPRESSION: CORTICAL CALCIFICATION IN THE RIGHT KIDNEY MEASURING 4 MM.. SIMPLE CYST IN THE LEFT KIDNEY. Reviewed, dictated and finalized at location A. [employer]
== END 2024-06-15 08:32 | disposition home or self-care (01) ==
LOC: CHSIMG 08:33
PROVIDERS: PCP Nurse Practitioner Family; Visit Provider Internal Medicine Nephrology
DX: N28.1 Cyst of kidney, acquired (principal)
CPT/HCPCS: 76775